=== PATIENT | female | born 1990 | race Caucasian/White ===

== ENCOUNTER 2020-01-31 12:39 | Emergency (ER) | payer MEDICAID, OTHER ==
[~2020-01-31] VITALS: Ht 170.2 cm; Wt 47.0 kg
[2020-01-31 12:52] VITALS: BP 105/72
[2020-01-31 13:21] LABS: URINE HCG NEGATIVE (NEG)
[2020-01-31 13:26] LABS: CLARITY,URINE CLOUDY (Clear); COLOR,URINE YELLOW (Yellow); GLUCOSE, URINE NEGATIVE (Neg); KETONES,URINE NEGATIVE (Neg); LEUKOCYTE ESTERASE ,URINE SMALL (Neg); NITRITES, URINE POSITIVE (Neg); OCCULT BLOOD,URINE SMALL (Neg); PH,URINE 5.5 (4.8-8.0); PROTEIN,URINE 30 mg/dl (Neg)
[2020-01-31 13:37] LABS: UA COLLECTION TYPE CLN CATCH MIDSTREAM
[2020-01-31 13:39] LABS: BACTERIA,URINE 4+ /HPF (Neg); MUCUS STRANDS NONE SEEN /LPF (Neg); SQUAMOUS EPITHELIAL CELL,UR MODERATE /LPF (FEW); WBC,URINE TNTC /HPF (0-4)
[2020-01-31 13:40] LABS: WBC CLUMPS,URINE FEW /HPF (NEGATIVE)
[2020-01-31] MEDS ORDERED: CefTRIAXone 250MG IM Kit w/LIDOcaine IM ONE (13:50)
[2020-01-31] MEDS ORDERED: azithromycin 250mg tablet PO ONE (13:50)
[2020-01-31] MEDS ORDERED: metroNIDAZOLE 500mg tablet PO ONE (13:50)
[2020-01-31] MEDS ORDERED: CEPH-572 PO (14:08)
== END 2020-01-31 14:23 | disposition home or self-care (01) ==
LOC: ER 12:41
DX: N39.0 Urinary tract infection, site not specified (principal); A64 Unspecified sexually transmitted disease; J45.909 Unspecified asthma, uncomplicated; N89.8 Other specified noninflammatory disorders of vagina; Z88.0 Allergy status to penicillin; Z79.899 Other long term (current) drug therapy
CPT/HCPCS: 36415; 81001; 81025; 87088; 87186; 87491; 87591; 96372; 99283; J0696; 87077; J3490